=== PATIENT | female | born 1940 | race Caucasian/White ===

== ENCOUNTER 2016-11-27 17:31 | Emergency (ER) | payer MEDICARE, MEDICAID ==
[~2016-11-27] VITALS: Ht 157.5 cm; Wt 75.9 kg
[2016-11-27 17:51] VITALS: BP 108/67; PULSE 73; RESP 19; O2SAT 99
[2016-11-27 18:04] LABS: BASOPHILS % (AUTO) 0.3 % (0-3); EOSINOPHILS % (AUTO) 1.9 % (0-5); MONOCYTES % (AUTO) 8.8 % (4-12); Mean Corpuscular Hemoglobin 24.8 pg (27.0-35.0); Mean Corpuscular Volume 81.4 fL (81-100); NEUTROPHILS % (AUTO) 68.8 % (40-74); Platelet Count 286 bil/L (150-400)
--- NOTE | 2016-11-27 18:11 | ED.REPORT ---
HPI-General Illness Date of Service November 27, 2016 ED Provider: Jak Carpenter MD The patient is a 75 year old female with a medical history including MS, Parkinson's disease, hypertension, DM type 2, and atrial fibrillation who presents to the ED via EMS from [facility] with elevated blood glucose levels measured this week. EMS found the patient with a blood sugar of 499. The patient has an indwelling Perez and three days ago she was placed on Bactrim for a UTI. The patient denies fever, vomiting, chest pain, shortness of breath, or other symptoms. She normally takes Levemir 90 units in the morning and 50 units at night as well as Tradjenta 5mg daily. Patient is FULL CODE, FULL TREATMENT. Nursing Notes Stated Complaint: HIGH BLOOD SUGAR Chief Complaint: General Complaint Nursing Notes Reviewed: Yes Allergies: Coded Allergies: No Known Allergies (Unverified , 11/27/16) Scheduled Amoxicillin/Clav K 875-125 mg (Augmentin 875-125 mg) 1 Each Tablet 1 TABLET PO BID General Time Seen by MD: 18:10 Chief Complaint Other (Hyperglycemia) Hx Obtained From: Patient Arrived By: Ambulance Sudden in Onset?: No Onset Occurred: 1 week ago Symptom Duration: Since onset Severity: Current: No pain currently Severity: Maximum: No pain Pertinent Negative: Relieved by nothing Context Related History: Reports Diabetes mellitus Recent Healthcare: Recent doctor visit Past Medical History Past Medical History Multiple sclerosis Parkinson's disease Hyperlipidemia Hypertension DM type 2 Atrial fibrillation Cognitive communication deficit Chronic low back pain Severe pancreatitis with splenic vein thrombosis with prior J-tube and gastric pancreatic drain placement in [facility] about 4 years ago. The drains have been removed. Past Surgical History Left distal femur fracture s/p ORIF in 01/2015 Total left knee arthroplasty Cholecystectomy Hysterectomy Ankle surgery Cataract extraction Knee arthroscopy Suprapubic cystostomy with suprapubic catheter placement Family History Diabetes maternal side Heart disease paternal side Smoking History Unknown if Ever Smoker Social History Other Social History: [facility] in penitentiary Ambulatory Status Independent Review of Systems + Hyperglycemia (499 per EMS) Full Review of Systems Constitutional: Denies: Fever Respiratory: Denies: Non-productive cough, Shortness of breath Cardiovascular: Denies: Chest pain GI: Denies: Diarrhea, Vomiting Complete sys rev & neg: except as marked. Physical Exam Vital Signs Vital Signs Date Time Temp Pulse Resp B/P Pulse Ox O2 Delivery O2 Flow Rate FiO2 11/28/16 00:30 37.1 72 14 145/78 99 Room Air 11/27/16 17:51 36.9 73 19 108/67 99 Room Air Initial VS: Reviewed Head / Eyes: Atraumatic, Normocephalic ENT: Conjunctiva normal, No scleral icterus Skin: Warm, Dry, No cyanosis Neurologic: Alert, Oriented Psychiatric: Mood/affect normal, Behavior normal, Normal thought content General/Constitutional: Awake, Alert Respiratory / Chest: Breath sounds NL, Breath sounds = bilat, No respiratory distress Cardiovascular: Heart rate NL, Regular rhythm, Heart sounds NL, No gallop, No murmurs, No rubs Interpretation & Diagnostics Bedside Blood Glucose: 444 at 18:25 343 at 20:22 209 at 23:09 Lab Results Interpretation Result Diagram: 11/27/16 1743 11/27/16 1743 Test 11/27/16 17:43 11/27/16 18:12 White Blood Count 11.3th/mm3 (3.8-10.1) Red Blood Count 3.87mil/mm3 (3.90-5.20) Hemoglobin 9.6g/dL (12.0-15.6) Hematocrit 31.5% (35.0-46.0) Mean Corpuscular Volume 81.4fL (81-100) Mean Corpuscular Hemoglobin 24.8pg (27.0-35.0) Mean Corpuscular Hemoglobin Concent 30.5% (32.0-37.0) Red Cell Distribution Width 17.7% (12.3-15.4) Platelet Count 286bil/L (150-400) Neutrophils (%) (Auto) 68.8% (40-74) Lymphocytes (%) (Auto) 19.7% (14-46) Monocytes (%) (Auto) 8.8% (4-12) Eosinophils (%) (Auto) 1.9% (0-5) Basophils (%) (Auto) 0.3% (0-3) Sodium Level 130mEq/L (134-144) Potassium Level 5.4mEq/L (3.5-5.2) Chloride Level 92mEq/L (97-108) Carbon Dioxide Level 21mmol/L (18-29) Blood Urea Nitrogen 31mg/dL (8-27) Creatinine 1.19mg/dL (0.57-1.00) Estimat Glomerular Filtration Rate 64mL/min (>59) Glucose Level 507mg/dL (60-99) Calcium Level 9.2mg/dL (8.5-10.1) Magnesium Level 1.5mg/dL (1.6-2.6) Total Bilirubin 0.2mg/dL (0.0-1.2) Aspartate Amino Transf (AST/SGOT) 23U/L (0-50) Alanine Aminotransferase (ALT/SGPT) 6U/L (0-32) Alkaline Phosphatase 130U/L (25-165) Troponin T < 0.010ug/L (0.0-0.011) Total Protein 7.7g/dL (6.4-8.4) Albumin 2.6g/dL (3.4-5.0) Urine Color Dark yellow (YELLOW) Urine Appearance Hazy (CLEAR,HAZY) Urine pH 7.0 (5.0-8.0) Urine Specific [place] 1.010 (1.003-1.035) Urine Protein Tracemg/dL (NEG,TRACE) Urine Glucose (UA) >1000mg/dL (NEGATIVE) Urine Ketones Negativemg/dL (NEGATIVE) Urine Occult Blood Large (NEGATIVE) Urine Nitrite Negative (NEGATIVE) Urine Bilirubin Negative (NEGATIVE) Urine Urobilinogen Normalmg/dL (NORMAL) Urine Leukocyte Esterase Moderate (NEGATIVE) Urine RBC >50/hpf (0-2) Urine WBC >50/hpf (0-5) Urine Epithelial Cells Few/hpf (NONE-MOD) Urine Crystals None seen (NONE SEEN) Urine Bacteria Few/hpf (NONE-FEW) Urine Hyaline Casts None/lpf (NONE) Urine Granular Casts None seen (NONE SEEN) Urine Waxy Casts None seen (NONE SEEN) Urine Red Blood Cell Casts None seen (NONE SEEN) Urine White Blood Cell Casts None seen (NONE SEEN) Urine Mucus None seen (None Seen) Urine Trichomonas None seen (NONE SEEN) Urine Yeast None (NONE SEEN) Urinalysis Comment None Urine Culture Reflexed Indicated ECG Interpretation ECG Interpretation: Sinus rhythm 63 Old inferior infarct Possible anterior infarct Nothing acute Time: 19:18 Interpreted by: ED physician X-Ray Chest Interpretation Chest Xray Interpretation: IMPRESSION: Decreased lung volumes, without acute cardiopulmonary disease. Dictated by: Doroteo Daniel M.D. on 11/27/2016 at 19:54 View: Portable, 1 view Interpretation / Wet Read by: Interpret - Radiologist Re-Eval/Medical Decision Med Decision/Clinical Course 75-year-old type II diabetic with multiple other medical problems who for the last several days has been having [facility]. Is also thought to have urinary tract infection, previous treatment for this is unknown to me and to Dr. Alejandre her primary care doctor at the [facility] facility. Other than her urinary tract infection, no cause for decompensation and blood sugars was identified. Considered acute ischemia, other infectious processes surgical abdominal problems. She had a gap of 17 is not making ketones is hemodynamically stable and not febrile. I believe she is septic or in DKA. She was given IV fluids and 3 separate subcutaneous doses of regular insulin here in the emergency department. Her blood sugar has come down to a reasonable level. She was given Rocephin intravenously for her urinary tract infection. After discussion with Dr. Alejandre, she is discharged back to the [facility] facility with the addition of a regular insulin sliding scale and Augmentin for her presumed urinary tract infection with urine cultures pending. Source of Hx: Old records Time of Eval: 20:30 Patient Status: Condition improved Re-Evaluation/Progress Note: Discussed with patient lab and x-ray results, diagnosis, and plan for discharge after blood sugar is reduced. Follow-up and return to the ER instructions given. Patient agrees with plan for care and all questions were addressed. Consultation : Referral / Consult Name: Quoc Alejandre MD Consulted With: Primary care physician Call Returned at: 22:01 Tool And Die Designer: Agrees with eval, Agrees with plan Note: Recommends medium dose of regular insulin sliding scale Counseled Regarding: Diagnosis, Lab results, Need for follow-up, When/why to return to ED Discharge & Departure Primary Impression: Hyperglycemia due to type 2 diabetes mellitus Diabetes mellitus jail insulin use: unspecified jail insulin use status Qualified Code: E11.65 - Type 2 diabetes mellitus with hyperglycemia Additional Impression: Urinary tract infection Urinary tract infection type: acute cystitis Hematuria presence: without hematuria Qualified Code: N30.00 - Acute cystitis without hematuria Disposition: Home Discharge Condition All VS Reviewed: Yes Condition: Improved Additional Instructions: Emergency Department evaluation included interview exam labs ECG and chest x- ray. A urinary tract infection was noted. Glucose came from over 500 to 200 with IV fluids and insulin. We gave Rocephin 2 g intravenously. Case was discussed with Dr. Miguel. Continue previous medications. Add Augmentin 875 twice a day 5 days. Add insulin sliding scale as attached. Contact Dr. Miguel for additional follow-up instructions. Referrals: Quoc Alejandre MD Attestation Portions of this note were transcribed by Holly Perry. I, Dr. Carpenter, personally performed the history, physical exam, and medical decision-making; I reviewed and confirmed the accuracy of the information in the transcribed note. Signed by: Tonya Powers, 11/28/2016, 00:45 copies to: Quoc Alejandre MD, Donald L MD November 27, 2016 18:11 HOLLY PERRY November 27, 2016 18:15
[2016-11-27 18:22] LABS: Magnesium 1.5 mg/dL (1.6-2.6)
[2016-11-27 18:50] LABS: APPEARANCE,URINE HAZY (CLEAR,HAZY); COLOR,URINE DARK YELLOW (YELLOW); OCCULT BLOOD,URINE LARGE (NEGATIVE); UROBILINOGEN,URINE NORMAL (NORMAL)
[2016-11-27] MEDS ORDERED: Insulin Human REGular-Omnicell 100 Unit/mL SUBQ ONE ×3 (19:10→21:55)
--- NOTE | 2016-11-27 19:57 | DRSVH ---
PROCEDURE: X-RAY CHEST ONE VIEW, PORTABLE ([id number]) INDICATIONS: 75 year-old diabetic female with hyperglycemia. TECHNIQUE: One view of the chest was acquired. COMPARISON: None. FINDINGS: Surgical changes and devices: Cholecystectomy clips are present, as well as pigtail catheter device i n the medial left upper abdomen. Lungs and pleura: No pleural effusions or pneumothorax. Lungs are clear. Lung volumes are decrease d. Mediastinum: Mediastinal contours appear normal. Heart size is normal. Bones and chest wall: No suspicious bony lesions. Overlying soft tissues appear unremarkable. IMPRESSION: Decreased lung volumes, without acute cardiopulmonary disease. Dictated by: Doroteo Daniel M.D. on 11/27/2016 at 19:54 Approved by: Doroteo Daniel M.D. on 11/27/2016 at 19:55
[2016-11-27] MEDS ORDERED: cefTRIAXone Inj 2,000 MG in Dextrose 5% Minibag Plus 50 ML IV ONE (20:35)
[2016-11-27] MEDS ORDERED: AMOX-366 PO (23:12)
[2016-11-28 00:30] VITALS: BP 145/78; PULSE 72; RESP 14; O2SAT 99
== END 2016-11-28 00:20 | disposition home or self-care (01) ==
LOC: EDBD 17:31 → SED 17:31
DX: E11.65 Type 2 diabetes mellitus with hyperglycemia (principal); N30.00 Acute cystitis without hematuria; G35 Multiple sclerosis; G20 Parkinson's disease; I10 Essential (primary) hypertension; E78.5 Hyperlipidemia, unspecified
CPT/HCPCS: 36415; 71010; 80053; 81000; 82948; 83735; 84484; 85025; 87086; 93005; 96365; 96372; 99285; J0696; J1815

== ENCOUNTER 2016-12-16 15:55 | Inpatient (IN) | payer MEDICARE, MEDICAID ==
[~2016-12-16] VITALS: Ht 160 cm; Wt 80.5 kg
[2016-12-16] VITALS (7 sets, daily range): BP systolic 104–148; BP diastolic 36–80; PULSE 81–100; RESP 16–22; O2SAT 95–100
[~2016-12-16 15:55] MED LIST: AMOX-366 PO
--- NOTE | 2016-12-16 16:05 | ED.REPORT ---
HPI-Fever Date of Service Dec 16, 2016 ED Provider: Dr. Grande Pt is a 75 y/o female w/ a hx of UTI, MS, Parkinson's disease, HTN, hyperlipidemia, NIDDM, A-fib, presenting to the ED via EMS from [facility] due to fever onset today. [facility] called EMS due to fever of 101 F and shaking chills after calling her PCP who told to come in to the ED. She c/o associated difficulty urinating onset unknown. She denies any pain or discomfort , cough, SOB, nausea, vomiting, diarrhea, dysuria, rash, skin breakdown, focal numbness or weakness. She has a history of UTIs previously and current symptoms are similar. She does not know the last time she had a UTI. Medics noted fever of 102.8 F on route with other vital signs stable. She apparently had a UTI several weeks ago and was admitted to [facility] at which time a suprapubic catheter was placed and she was treated with Bactrim. The suprapubic catheter was later pulled because there was discharge of pus. She then had a Perez catheter placed and seemed to improve. She was started on Bactrim again on 11/26 due to supposed UTI. Nurse at [facility] indicates her mental status is somewhat worse today that usual. Hx limited due to mental status. Nursing Notes Stated Complaint: FEVER Nursing Notes Reviewed: Yes Allergies: Coded Allergies: No Known Allergies (Unverified , 11/27/16) Scheduled Acetaminophen (Acetaminophen) 325 Mg Tablet 650 MG PO TID Aspirin Chew (Aspirin Chew) 81 Mg Chew 81 MG PO QAM Biotin (Biotin) 5,000 Mcg Tab.rapdis 5,000 MCG PO BID Carbidopa/Levodopa 25-100 mg (Carbidopa/Levodopa 25-100 mg) 1 Each Tablet 2 TABLET PO TIDWM Chlorhexidine Gluconate (Hand Wash) 2 % Liquid 10 ML TP WEEKLY DURING SHOWER WEEKLY Cholecalciferol (Vitamin D3) (Vitamin D3) 1,000 Unit Tab.chew 2,000 UNIT PO QAM Cyanocobalamin (Vitamin B12) 500 Mcg Tablet 1,000 MCG PO QAM Gabapentin (Gabapentin) 400 Mg Capsule 400 MG PO QID Insulin Detemir (Levemir U100 Insulin Vial) 100 Unit/1 Ml Vial 100 UNIT SUBQ DAILYWM Insulin Detemir (Levemir U100 Insulin Vial) 100 Unit/1 Ml Vial 60 UNIT SUBQ DAILYWD Lactobacillus Acidophilus (Probiotic Acidophilus) 2 Billion Cell Tablet 1 EACH PO BIDWM Linagliptin (Tradjenta) 5 Mg Tablet 5 MG PO QAM Lisinopril (Lisinopril) 2.5 Mg Tablet 2.5 MG PO QAM Metoprolol Tartrate (Metoprolol Tartrate) 50 Mg Tablet 50 MG PO BID Multivit with Calcium,Iron,Min (Therapeutic M) 1 Each Tablet 1 EACH PO QAM Nystatin (Nystatin) 15 Gm Powder 1 APPLIC TP BID TO GROIN Omeprazole (Omeprazole) 20 Mg Capsule.dr 20 MG PO QAM Simvastatin (Simvastatin) 10 Mg Tablet 10 MG PO HS Sulfamethoxazole/Trimeth 800-160 mg (Bactrim DS) 1 Each Tablet 1 TABLET PO BID Scheduled PRN Bisacodyl (Dulcolax Rectal) 10 Mg Supp.rect 10 MG RC DAILY PRN PRN For Constipation PER BOWEL PROTOCOL STEP 2: IF NO RESULTS POST MOM ADMINISTRATION Hydrocodone-Acetaminophen 5-325 mg (Hydrocodone-Acetaminophen 5-325 mg) 1 Each Tablet 1 TABLET PO Q6H PRN PRN For Pain Loperamide (Loperamide) 2 Mg Tablet 2 MG PO Q4H PRN PRN For Diarrhea or Loose Stool Magnesium Hydroxide (Milk of Magnesia) 400 Mg/5 Ml Oral.susp 30 ML PO DAILY PRN PRN For Constipation PER BOWEL PROTOCOL STEP 1: IF NO BOWEL MOVEMENTS IN 3 DAYS Methyl Salicylate/Menth/Camph (Bengay Ultra Strength Crm) 57 Gm Cream..g. 1 APPLIC TP BID PRN PRN For Pain TO FEET FOR ARTHRITIC PAIN Na Phos,M-B/Na Phos,Di-Ba (Fleet Enema) 133 Ml Enema 133 ML RC DAILY PRN PRN For Constipation PER BOWEL PROTOCOL STEP 3: IF NO RESULTS POST BISACODYL ADMINISTRATION Tramadol (Tramadol) 50 Mg Tablet 50-100 MG PO Q6H PRN PRN For Pain 1 TABLET FOR MIL PAIN, 2 TABLETS FOR MODERATE PAIN Zinc Oxide (Zinc Oxide) 57 Gm Oint...g. 1 APPLIC TP Q8H PRN PRN RASH General Time Seen by MD: 16:05 Chief Complaint Fever currently Hx Obtained From: Patient, EMS Arrived By: Ambulance Onset Occurred: 1 - 4 hours ago Symptom Duration: Since onset Severity: Current: No pain currently Severity: Maximum: No pain Similar Sx Previous: Yes Past Medical History Past Medical History Multiple sclerosis Parkinson's disease Recurrent ground level falls Hyperlipidemia Hypertension Hx UTI DM type 2 Atrial fibrillation Cognitive communication deficit Chronic low back pain h/o Severe pancreatitis with splenic vein thrombosis with prior J-tube and gastric pancreatic drain placement in [facility] about 4 years ago. The drains have been removed. Past Surgical History Left distal femur fracture s/p ORIF in 01/2015 Total left knee arthroplasty Cholecystectomy Hysterectomy Ankle surgery Cataract extraction Knee arthroscopy Suprapubic cystostomy with suprapubic catheter placement Perez catheter placement Family History Diabetes maternal side Heart disease paternal side Smoking History Unknown if Ever Smoker Social History Other Social History: Lives in [facility] Ambulatory Status Independent Review of Systems Review of Systems Note: +vague difficulty urinating Constitutional: Reports: Chills, Fever Respiratory: Denies: Non-productive cough, Pleuritic pain, Shortness of breath Cardiovascular: Denies: Chest pain GI: Denies: Abdominal pain, Constipation, Diarrhea, Nausea, Vomiting Male: Reports Urination decreased, Denies Dysuria, Denies Flank pain Skin: Denies Itching, Denies Rash, Denies Swelling Neurologic: Reports: Confusion, Denies: Focal weakness, Numbness Complete sys rev & neg: except as marked. Physical Exam Initial Vital Signs Vital Signs (First) Date Time Temp Pulse Resp B/P Pulse Ox O2 Delivery O2 Flow Rate FiO2 12/16/16 16:07 39.2 88 20 127/80 96 Room Air Initial VS: Reviewed Head / Eyes: Atraumatic, Normocephalic, PERRL ENT: Mucous membranes moist, Conjunctiva normal, No scleral icterus Extremities: Vascular intact, Neuro intact, No swelling, No tenderness Psychiatric: Mood/affect normal, Behavior normal General/Constitutional: Awake, Alert, No acute distress, Cooperative, Not toxic appearing Febrile Globally weak Neck: Atraumatic, Supple, No meningismus, Full range of motion Respiratory / Chest: Breath sounds NL, Breath sounds = bilat, No respiratory distress, No rales, No rhonchi, No wheezing, No retractions, No stridor Cardiovascular: Heart rate NL, Regular rhythm, Heart sounds NL, No gallop, No murmurs, No rubs Skin: Atraumatic, Color NL, No rash, Warm, Dry, Intact Neurologic: Speech NL, No motor deficits, No sensory deficits Pleasantly confused but worse than baseline according to SNF nurse Able to give a history but cannot answer some questions Records indicate cognitive difficulties Abdomen: Atraumatic, Soft, Non-tender, No guarding, No rebound, No distention Large incisional scar about mid-abdomen Suprapubic stoma healed with no signs of infection Indwelling Perez catheter in place which has apparently been there for 4-5 weeks Interpretation & Diagnostics Lab Results Interpretation Result Diagram: 12/16/16 1649 12/16/16 1649 Test 12/16/16 16:49 White Blood Count 12.8th/mm3 (3.8-10.1) Red Blood Count 3.96mil/mm3 (3.90-5.20) Hemoglobin 10.0g/dL (12.0-15.6) Hematocrit 32.5% (35.0-46.0) Mean Corpuscular Volume 82.1fL (81-100) Mean Corpuscular Hemoglobin 25.3pg (27.0-35.0) Mean Corpuscular Hemoglobin Concent 30.8% (32.0-37.0) Red Cell Distribution Width 16.5% (12.3-15.4) Platelet Count 260bil/L (150-400) Neutrophils (%) (Auto) 79.6% (40-74) Lymphocytes (%) (Auto) 8.3% (14-46) Monocytes (%) (Auto) 10.2% (4-12) Eosinophils (%) (Auto) 1.2% (0-5) Basophils (%) (Auto) 0.4% (0-3) Urine Color Yellow (YELLOW) Urine Appearance Cloudy (CLEAR,HAZY) Urine pH 6.0 (5.0-8.0) Urine Specific [place] 1.015 (1.003-1.035) Urine Protein 100mg/dL (NEG,TRACE) Urine Glucose (UA) 250mg/dL (NEGATIVE) Urine Ketones Negativemg/dL (NEGATIVE) Urine Occult Blood Large (NEGATIVE) Urine Nitrite Negative (NEGATIVE) Urine Bilirubin Negative (NEGATIVE) Urine Urobilinogen Normalmg/dL (NORMAL) Urine Leukocyte Esterase Large (NEGATIVE) Urine RBC 11-50/hpf (0-2) Urine WBC Packed/hpf (0-5) Urine Epithelial Cells Occasional/hpf (NONE-MOD) Urine Crystals None seen (NONE SEEN) Urine Bacteria Few/hpf (NONE-FEW) Urine Hyaline Casts None/lpf (NONE) Urine Granular Casts None seen (NONE SEEN) Urine Waxy Casts None seen (NONE SEEN) Urine Red Blood Cell Casts None seen (NONE SEEN) Urine White Blood Cell Casts None seen (NONE SEEN) Urine Mucus None seen (None Seen) Urine Trichomonas None seen (NONE SEEN) Urine Yeast Few (NONE SEEN) Urinalysis Comment None Urine Culture Reflexed Indicated Sodium Level 127mEq/L (134-144) Potassium Level 5.7mEq/L (3.5-5.2) Chloride Level 96mEq/L (97-108) Carbon Dioxide Level 18mmol/L (18-29) Blood Urea Nitrogen 32mg/dL (8-27) Creatinine 1.08mg/dL (0.57-1.00) Estimat Glomerular Filtration Rate 71mL/min (>59) Glucose Level 343mg/dL (60-99) Lactic Acid Level 1.8mmol/L (0.4-2.0) Calcium Level 9.6mg/dL (8.5-10.1) Total Bilirubin 0.3mg/dL (0.0-1.2) Aspartate Amino Transf (AST/SGOT) 28U/L (0-50) Alanine Aminotransferase (ALT/SGPT) < 5U/L (0-32) Alkaline Phosphatase 129U/L (25-165) Troponin T < 0.010ug/L (0.0-0.011) Pro-B-Type Natriuretic Peptide 522.1pg/mL (0-738) Total Protein 8.7g/dL (6.4-8.4) Albumin 3.2g/dL (3.4-5.0) Lab Results Interpretation: CBC positive leukocytosis CMP positive hyperglycemia, mild hyperK (no EKG changes) Lactic acid normal UA markedly positive suggested possible UTI, however is a sample from a Perez so difficult to interpret-cultures pending 2 pending ECG Interpretation ECG Interpretation: Sinus rhythm rate 86 LAD No change from prior 11/27/16 Time: 16:34 Interpreted by: ED physician Normal ECG Interpretation: No acute ischemic changes X-Ray Chest Interpretation Chest Xray Interpretation: IMPRESSION: No acute cardiopulmonary findings. Dictated by: Malena Sanders M.D. on 12/16/2016 at 17:13 Approved by: Malena Sanders M.D. on 12/16/2016 at 17:13 View: Portable, 1 view Interpretation / Wet Read by: Interpret - Radiologist Re-Eval/Medical Decision Med Decision/Clinical Course This is a 75-year-old female sent from [facility] [place] with new onset fever and chills. Fused and so I called the nursing facility to get their history or they are concerned about a urinary source, the patient had a suprapubic catheter that was filled with purulence couple months ago was pulled , the stone was now healed and she has an indwelling Perez. She has been on Bactrim for possible UTI initiated at [facility]. I was able to obtain records from the ED visit, but not successful at obtaining a urine culture. The patient apparently is not as confused as she is now, demonstrates some delirium. She cannot give any useful history. She appears fatigued and globally weak, but not overtly toxic. Her abdomen is soft and nontender. She is febrile, but not hypotensive. Blood work is notable for leukocytosis, hyperglycemia, and the urine is packed with white cells. The patient's being started on Antibiotics after cultures been drawn. She has been able to take by mouth antipyretics and IV fluids. She has trace hyperK which may be from the Bactrim, but has no EKG changes. Plan is D/C bactrim, IV fluids and recheck. Given the delirium and likely sepsis the patient is being admitted for continued management. Source of Hx: Old records Re-Evaluation/Progress : Time of Eval: 17:46 Re-Evaluation/Progress Note: Pt rechecked. Informed pt of need for admission. Pt understands and agrees with need for admission. All questions addressed. Consultation : Referral / Consult Name: Karl Rankin MD Call Returned at: 18:19 Flexographic Press Plate Setter: Accepts admit Counseled Regarding: Diagnosis, Lab results, Need for admission Discharge & Departure Impression: Primary Impression: UTI (urinary tract infection) Urinary tract infection type: site unspecified Hematuria presence: without hematuria Qualified Code: N39.0 - Urinary tract infection, site not specified Additional Impressions: Sepsis Sepsis type: sepsis due to unspecified organism Qualified Code: A41.9 - Sepsis, unspecified organism Delirium Hyperglycemia Hyperkalemia Disposition: ADMITTED TO HOSPITAL Discharge Condition All VS Reviewed: Yes Condition: Stable Referrals: Lucho Cali MD (PCP) Tonya Attestation Portions of this note were transcribed by Beto Sanchez. I, Dr. Grande personally performed the history, physical exam and medical decision-making; I reviewed and confirmed the accuracy of the information in the transcribed note. Signed by Tonya Asencio, 12/16/16 - [id number] copies to: Lucho Cali MD, Matthew F MD Dec 16, 2016 16:05 BETO SANCHEZ Dec 16, 2016 16:12
[2016-12-16] MEDS ORDERED: 0.9% Sodium Chloride 1,000 ML IV ONE ×2 (16:10→18:40)
[2016-12-16] MEDS ORDERED: CARB1TAB14 PO (16:48)
[2016-12-16] MEDS ORDERED: METH57CR TP (16:48)
[2016-12-16] MEDS ORDERED: BIOT5000 PO (16:48)
[2016-12-16] MEDS ORDERED: INSU100V4 SUBQ ×2 (16:48)
[2016-12-16] MEDS ORDERED: GABA-504 PO (16:48)
[2016-12-16] MEDS ORDERED: ACET325T51 PO (16:48)
[2016-12-16] MEDS ORDERED: HYDR-4003 PO (16:48)
[2016-12-16] MEDS ORDERED: ASPI81TA3 PO (16:48)
[2016-12-16] MEDS ORDERED: LINA5TAB PO ×2 (16:54→22:45)
[2016-12-16] MEDS ORDERED: TRAM50TA2 PO (16:54)
[2016-12-16] MEDS ORDERED: LOPE2TAB32 PO (16:54)
[2016-12-16] MEDS ORDERED: MULT-140 PO (16:54)
[2016-12-16] MEDS ORDERED: MAGN400O4 PO (16:54)
[2016-12-16] MEDS ORDERED: LACT1TAB25 PO (16:54)
[2016-12-16] MEDS ORDERED: BISA10SU61 RC (16:54)
[2016-12-16] MEDS ORDERED: OMEP20CA11 PO (16:54)
[2016-12-16] MEDS ORDERED: CYAN500 PO (16:54)
[2016-12-16] MEDS ORDERED: SERT20OR6 PO (16:54)
[2016-12-16] MEDS ORDERED: CHOL10008 PO (16:54)
[2016-12-16] MEDS ORDERED: ZINC57OI TP (16:54)
[2016-12-16] MEDS ORDERED: NYST15PO5 TP (16:54)
[2016-12-16] MEDS ORDERED: LISI2.5T PO (16:54)
[2016-12-16] MEDS ORDERED: SIMV10TA4 PO (16:54)
[2016-12-16] MEDS ORDERED: NA P133E23 RC (16:54)
[2016-12-16] MEDS ORDERED: METO25TA6 PO (16:54)
[2016-12-16] MEDS ORDERED: METO50TA3 PO (16:57)
[2016-12-16] MEDS ORDERED: CHLO60LI TP (16:57)
[2016-12-16 16:58] LABS: BASOPHILS % (AUTO) 0.4 % (0-3); EOSINOPHILS % (AUTO) 1.2 % (0-5); MONOCYTES % (AUTO) 10.2 % (4-12); Mean Corpuscular Hemoglobin 25.3 pg (27.0-35.0); Mean Corpuscular Volume 82.1 fL (81-100); NEUTROPHILS % (AUTO) 79.6 % (40-74); Platelet Count 260 bil/L (150-400)
--- NOTE | 2016-12-16 17:15 | DRSVH ---
PROCEDURE: X-RAY CHEST ONE VIEW, PORTABLE ([id number]) INDICATIONS: fever TECHNIQUE: One view of the chest was acquired. COMPARISON: [facility], CR, XR CHEST 1VW (PORTABLE), 11/27/2016, 19:22. FINDINGS: Surgical changes and devices: None. Lungs and pleura: No pleural effusions or pneumothorax. Lungs are clear. Mediastinum: Mediastinal contours appear normal. Heart size is normal. Bones and chest wall: No suspicious bony lesions. Overlying soft tissues appear unremarkable. IMPRESSION: No acute cardiopulmonary findings. Dictated by: Malena Sanders M.D. on 12/16/2016 at 17:13 Approved by: Malena Sanders M.D. on 12/16/2016 at 17:13
[2016-12-16] MEDS ORDERED: SULF1TAB7 PO (17:19)
[2016-12-16 17:27] LABS: TROPONIN T < 0.010 ug/L (0.0-0.011)
[2016-12-16 17:31] LABS: APPEARANCE,URINE CLOUDY (CLEAR,HAZY); COLOR,URINE YELLOW (YELLOW)
[2016-12-16 17:32] LABS: OCCULT BLOOD,URINE LARGE (NEGATIVE); UROBILINOGEN,URINE NORMAL (NORMAL); YEAST,URINE FEW (NONE SEEN)
[2016-12-16] MEDS ORDERED: 0.9% Sodium Chloride 1,000 ML IV SCH (17:52)
[2016-12-16] MEDS ORDERED: Alum-Mag Hydrox-Simeth 30 mL Suspension PO PRN ×2 (17:55→18:30)
[2016-12-16] MEDS ORDERED: Ondansetron 2 mg/mL 2 mL Inj IVPUSH PRN ×2 (17:55→18:30)
[2016-12-16] MEDS ORDERED: cefTRIAXone Inj 2,000 MG in Dextrose 5% Minibag Plus 50 ML IV ONE (18:25)
[2016-12-16] MEDS ORDERED: Polyethylene Glycol (PEG) 17 Gm Powder PO PRN (18:30)
[2016-12-16] MEDS ORDERED: Dextrose 10% 250 ML IV PRN (18:55)
[2016-12-16] MEDS: Insulin Human REGular 300 Unit/3 mL Inj SUBQ SCH (22:03)
--- NOTE | 2016-12-16 22:23 | PCM.HPMED ---
Subjective Date of Service Dec 16, 2016 Primary Provider: Admitting Physician: Karl Rnakin MD Primary Care Physician: Lucho Cali MD Attending Physician: Karl Rankin MD Chief Complaint: Fever and shaking chills. Patient states "I was shaking like a leaf". History of Present Illness: Patient is a very pleasant 75-year-old white female with history of multiple sclerosis, Parkinson's disease, hypertension, hyperlipidemia, non-insulin- dependent diabetes most, atrial fibrillation and history of severe urinary tract infections presents to [facility] emergency department via EMS services from [facility] [place] today due to onset of fever and shaking chills today. [facility] called EMS services as they found the patient's temperature to be 101 and she was having shaking chills. [facility] called the patient's primary care provider Lucho Regan who instructed the staff at [facility] that the patient needed to go to the emergency room. The medics noticed that the patient had 102.8F temperature on route to the hospital while the other vital signs were stable. Review of Systems: General: The patient states she was "shaking like a leaf". Prior to admission to the emergency room. HEENT: Patient has no headache, patient has no diplopia, patient has no changes in vision. Vision had bilateral cataract surgery with lens placement and sees quite well without glasses. She has some thinning of her hair. She denies any thyroid or endocrine problems. Patient has no problems with their ears, nose or throat. Patient has no known dental problems. Patient has no pharyngitis or history of thrush. Neck: Patient has no stiffness in the neck. Patient has no lymphadenopathy. Patient has no other problems with their neck. Pulmonary: Patient has no shortness of breath, no cough, no expectoration of sputum. Patient has no pleurisy. Patient has no chest pain. Patient has no history of asthma or COPD. Cardiovascular: Patient has no chest pain. Patient has no history of heart murmur. Patient has no palpitations. Patient has no history of myocardial infarction. Patient has no history of coronary artery disease. Gastrointestinal: Patient has no history of hepatitis A, B or C. Patient has no history of peptic ulcer disease. Patient has no history of gastroesophageal reflux disease. Patient has no history of nausea, vomiting, or diarrhea. Patient has no history of hematemesis, hematochezia, or melena. Patient has no history of colitis. Renal: Patient has no history of kidney disease. No history of kidney stones. Genitourinary: Patient has an indwelling Perez catheter. She has had some urinary tract infection the past due to her multiple sclerosis and Parkinson's disease she had placement of a suprapubic catheter. Pressure 3 months ago this catheter became grossly infected with purulent drainage and had to be removed. Patient has had a Perez catheter since that time. Patient was recently treated with Bactrim for a urinary tract infection. Musculoskeletal: Patient has no history of muscular skeletal problems. Neurologic: Patient has no history of stroke, no history of seizure, no history of TIA. Psychiatric: Patient has no history of psychiatric problems. The remainder of the entire review of systems was reviewed with patient and is as mentioned above otherwise negative. Allergies Coded Allergies: No Known Allergies (Unverified , 12/16/16) Home Medications Scheduled Acetaminophen (Acetaminophen) 325 Mg Tablet 650 MG PO TID Aspirin Chew (Aspirin Chew) 81 Mg Chew 81 MG PO QAM Biotin (Biotin) 5,000 Mcg Tab.rapdis 5,000 MCG PO BID Carbidopa/Levodopa 25-100 mg (Carbidopa/Levodopa 25-100 mg) 1 Each Tablet 2 TABLET PO TIDWM Chlorhexidine Gluconate (Hand Wash) 2 % Liquid 10 ML TP WEEKLY DURING SHOWER WEEKLY Cholecalciferol (Vitamin D3) (Vitamin D3) 1,000 Unit Tab.chew 2,000 UNIT PO QAM Cyanocobalamin (Vitamin B12) 500 Mcg Tablet 1,000 MCG PO QAM Gabapentin (Gabapentin) 400 Mg Capsule 400 MG PO QID Insulin Detemir (Levemir U100 Insulin Vial) 100 Unit/1 Ml Vial 100 UNIT SUBQ DAILYWM Insulin Detemir (Levemir U100 Insulin Vial) 100 Unit/1 Ml Vial 60 UNIT SUBQ DAILYWD Lactobacillus Acidophilus (Probiotic Acidophilus) 2 Billion Cell Tablet 1 EACH PO BIDWM Linagliptin (Tradjenta) 5 Mg Tablet 5 MG PO QAM Lisinopril (Lisinopril) 2.5 Mg Tablet 2.5 MG PO QAM Metoprolol Tartrate (Metoprolol Tartrate) 50 Mg Tablet 50 MG PO BID Multivit with Calcium,Iron,Min (Therapeutic M) 1 Each Tablet 1 EACH PO QAM Nystatin (Nystatin) 15 Gm Powder 1 APPLIC TP BID TO GROIN Omeprazole (Omeprazole) 20 Mg Capsule.dr 20 MG PO QAM Simvastatin (Simvastatin) 10 Mg Tablet 10 MG PO HS Sulfamethoxazole/Trimeth 800-160 mg (Bactrim DS) 1 Each Tablet 1 TABLET PO BID Scheduled PRN Bisacodyl (Dulcolax Rectal) 10 Mg Supp.rect 10 MG RC DAILY PRN PRN For Constipation PER BOWEL PROTOCOL STEP 2: IF NO RESULTS POST MOM ADMINISTRATION Hydrocodone-Acetaminophen 5-325 mg (Hydrocodone-Acetaminophen 5-325 mg) 1 Each Tablet 1 TABLET PO Q6H PRN PRN For Pain Loperamide (Loperamide) 2 Mg Tablet 2 MG PO Q4H PRN PRN For Diarrhea or Loose Stool Magnesium Hydroxide (Milk of Magnesia) 400 Mg/5 Ml Oral.susp 30 ML PO DAILY PRN PRN For Constipation PER BOWEL PROTOCOL STEP 1: IF NO BOWEL MOVEMENTS IN 3 DAYS Methyl Salicylate/Menth/Camph (Bengay Ultra Strength Crm) 57 Gm Cream..g. 1 APPLIC TP BID PRN PRN For Pain TO FEET FOR ARTHRITIC PAIN Na Phos,M-B/Na Phos,Di-Ba (Fleet Enema) 133 Ml Enema 133 ML RC DAILY PRN PRN For Constipation PER BOWEL PROTOCOL STEP 3: IF NO RESULTS POST BISACODYL ADMINISTRATION Tramadol (Tramadol) 50 Mg Tablet 50-100 MG PO Q6H PRN PRN For Pain 1 TABLET FOR MIL PAIN, 2 TABLETS FOR MODERATE PAIN Zinc Oxide (Zinc Oxide) 57 Gm Oint...g. 1 APPLIC TP Q8H PRN PRN RASH PMH Multiple sclerosis- is able to ambulate with a walker Parkinson's disease Recurrent ground level falls- states she has not had a fall for "quite a while" . Hyperlipidemia Hypertension Hx UTI DM type 2 Atrial fibrillation Cognitive communication deficit Chronic low back pain h/o Severe pancreatitis with splenic vein thrombosis with prior J-tube and gastric pancreatic drain placement in [facility] about 4 years ago. The drains have been removed. Surgical History Left distal femur fracture s/p ORIF in 01/2015 Total left knee arthroplasty Cholecystectomy Hysterectomy Ankle surgery Bilateral Cataract extraction Knee arthroscopy Suprapubic cystostomy with suprapubic catheter placement Perez catheter placement Family History Patient's father at 65 of myocardial infarction Patient's mother at the age of 64 from complications of diabetes Patient had one brother who of pancreatitis Patient has 1 sister who is very healthy. Social History Hx Alcohol Use: Yes (The patient drank during her teenage years only.) Hx Substance Use: No Smoking Status: Former Smoker (The patient smoked from the age of [age] one pack per day and then she quit.) Living Arrangement: Longterm Facility Additional Information The patient was born in [place], [place]. She went to high school in [place]. She graduated high school and did not go to college. She never and states single her entire life. She is 0 para 0. She moved to [place], [place] with her sister 14 years ago for better weather. However, the patient due to her multiple sclerosis and Parkinson's disease was unable to continue living in at home her sister is still living there. The patient was moved to [facility] where she has been residing for the last year. Exam Vital Signs Vital Sign - Last Date Time Temp Pulse Resp B/P Pulse Ox O2 Delivery O2 Flow Rate FiO2 12/16/16 20:41 37.3 86 18 146/78 99 Nasal Cannula 2.00 Exam General: Patient apparently was delirious in the emergency room was much more awake and alert and responsive and totally appropriate during my interview. She is eating macaroni and cheese voraciously. HEENT: Head is atraumatic and normocephalic. He has thinning of her hair. Eyes : Pupils are equally round and reactive to light and accommodation. Extraocular muscles are intact. Sclera are white, anicteric. Subconjunctival mucosa is pink. Ears and nose are unremarkable. Oropharynx: There is no mucosal lesions, there is no thrush, there is no pharyngitis. Neck: Is supple, there are no nodes, or masses or tenderness. Chest: Is clear to auscultation and percussion. There are no rales, rhonchi, wheezes or rubs. Breath sounds are shallow. Heart: Rate, rhythm is regular. There is no murmur, rub or gallop. Abdomen: Good bowel sounds are present. Abdomen is soft, nontender, no organomegaly or masses were appreciated. Extremities: Are symmetrical and well perfused. There is no edema, there is no cellulitis, no rash. Neurologic: Cranial nerves II through XII are intact. There is weakness in the lower extremities. Patient is left-hand dominant and is leaning towards the right. There is no obvious focal neurological deficit appears to be grossly symmetrical. Psychiatric: Patients mood is calm and shows no sign of agitation. Genital: Deferred Rectal: Deferred Lab and Diagnostics Result Diagram: 12/16/16 1649 12/16/16 1649 Microbiology N urine cultures are pending X-Rays, CTs and MRIs PROCEDURE: X-RAY CHEST ONE VIEW, PORTABLE ([id number]) INDICATIONS: fever TECHNIQUE: One view of the chest was acquired. COMPARISON: [facility], CR, XR CHEST 1VW (PORTABLE), 11/27/2016, 19: 22. FINDINGS: Surgical changes and devices: None. Lungs and pleura: No pleural effusions or pneumothorax. Lungs are clear. Mediastinum: Mediastinal contours appear normal. Heart size is normal. Bones and chest wall: No suspicious bony lesions. Overlying soft tissues appear unremarkable. IMPRESSION: No acute cardiopulmonary findings. Dictated by: Malena Sanders M.D. on 12/16/2016 at 17:13 Approved by: Malena Sanders M.D. on 12/16/2016 at 17:13 Assessment & Plan Patient is a very pleasant 75-year-old white female with history of multiple sclerosis, Parkinson's disease, hypertension, hyperlipidemia, non-insulin- dependent diabetes most, atrial fibrillation and history of severe urinary tract infections presents to [facility] emergency department via EMS services from [facility] today due to onset of fever and shaking chills today. [facility] called EMS services as they found the patient's temperature to be 101 and she was having shaking chills. [facility] called the patient's primary care provider Lucho Regan who instructed the staff at [facility] that the patient needed to go to the emergency room. The medics noticed that the patient had 102.8F temperature on route to the hospital while the other vital signs were stable. # Urinary tract infection with sepsis, present at time of admission. Active and ongoing.. - Patient has lactic acidosis - Patient will get another liter of normal saline bolus for a total of 3 L per sepsis protocol. - Check serial serum lactic acid levels until normalized. - Check final urine culture results - Continue Rocephin 2 g IV every 24 hours and adjust antibiotics according to culture results. - Check renal ultrasound. # Multiple sclerosis and Parkinson's disease - Patient has frequent urinary tract infections and had a suprapubic catheter placed in the past however this also got infected. - Change Perez catheter prior to discharge - We will consult physical therapy, occupational therapy, and speech therapy. - Continue home medications. # Type II diabetes mellitus - Sliding-scale insulin coverage after Accu-Cheks before meals and at bedtime - Check hemoglobin A1c - Diabetic diet. # History of hypertension - Continue home medications # History of hyperlipidemia - Continue home medications Disposition: Patient will be admitted for more than 2 midnights for evaluation and treatment of the above problems. Therefore, patient was admitted as an inpatient. Pain Evaluation: Adequate Pain Control GI Prophylaxis: Not indicated VTE Prophylaxis: Sub-Q Enoxaparin Resuscitation Status: CPR: Attempt Resuscitation Karl Rankin MD Dec 16, 2016 22:23
[2016-12-16] MEDS ORDERED: HYDROcodone-APAP 5-325 mg Tablet PO ONE (22:40)
[2016-12-16] MEDS ORDERED: Magnesium Hydroxide 355 mL Oral Suspension PO PRN (22:55)
[2016-12-16] MEDS ORDERED: Sodium Biphos-Phos 133 mL Enema RECTAL PRN (22:55)
[2016-12-16] MEDS ORDERED: Insulin GLARgine 100 Unit/mL Syringe SUBQ SCH (23:32)
[2016-12-16] MEDS: Nystatin 100,000 Unit/Gm 15 Gm Powder TOPICAL SCH (23:37)
[2016-12-16] MEDS ORDERED: Menthol Gel 57 Gm Tube TOPICAL PRN (23:40)
[2016-12-17] VITALS (8 sets, daily range): BP systolic 111–131; BP diastolic 57–75; PULSE 62–79; RESP 18–20; O2SAT 95–100
[2016-12-17] MEDS: 0.9% Sodium Chloride 1,000 ML IV SCH ×2 (01:39→21:00)
[2016-12-17] MEDS: Pantoprazole 20 mg ER24 Tablet PO SCH (05:56)
[2016-12-17 07:03] LABS: BASOPHILS % (AUTO) 0.5 % (0-3); EOSINOPHILS % (AUTO) 2.2 % (0-5); MONOCYTES % (AUTO) 15.9 % (4-12); Mean Corpuscular Hemoglobin 24.6 pg (27.0-35.0); Mean Corpuscular Volume 83.4 fL (81-100); NEUTROPHILS % (AUTO) 49.8 % (40-74); Platelet Count 195 bil/L (150-400)
[2016-12-17 08:41] LABS: ERYTHROCYTE SEDIMENTATION RATE 86 mm/hr (0-40)
[2016-12-17 09:31] LABS: Magnesium 1.3 mg/dL (1.6-2.6); Phosphorus 4.3 mg/dL (2.5-4.9)
[2016-12-17 09:32] LABS: Unsaturated Iron Binding 209.6 ug/dL
[2016-12-17] MEDS: HYDROcodone-APAP 5-325 mg Tablet PO PRN ×2 (10:23→20:36)
[2016-12-17] MEDS: Insulin Human REGular 300 Unit/3 mL Inj SUBQ SCH ×4 (10:25→22:28)
[2016-12-17] MEDS: Insulin GLARgine 100 Unit/mL Syringe SUBQ SCH (10:26)
[2016-12-17] MEDS: Nystatin 100,000 Unit/Gm 15 Gm Powder TOPICAL SCH ×2 (10:28→20:40)
[2016-12-17] MEDS: cefTRIAXone Inj 2,000 MG in Dextrose 5% Minibag Plus 50 ML IV SCH (19:37)
--- NOTE | 2016-12-17 23:40 | PCM.PNMED ---
Subjective Date of Service Dec 17, 2016 Subjective Patient has no new complaints. She is beginning to feel better. She was able to walk around her bed with the assistance of a walker and 2 physical therapist Exam Vital Signs Vital Sign - Last Date Time Temp Pulse Resp B/P Pulse Ox O2 Delivery O2 Flow Rate FiO2 12/17/16 20:47 37.1 62 18 131/75 96 12/17/16 18:28 Nasal Cannula 2.00 Intake and Output 12/16/16 12/16/16 12/17/16 Cumulative From/Thru 15:00 23:00 07:00 12/16/16 16:07 - 12/17/16 05:38 Intake Total 1000 ml 1469 ml 2469 ml Output Total 1800 ml 1800 ml Balance 1000 ml -331 ml 669 ml Intake Oral 220 ml 220 ml IV Total 1000 ml 1249 ml 2249 ml Output Urine Total 1800 ml 1800 ml # Bowel Movements 1 1 Exam General: Patient apparently was delirious in the emergency room was much more awake and alert and responsive and totally appropriate during my interview. She is eating macaroni and cheese voraciously. HEENT: Head is atraumatic and normocephalic. He has thinning of her hair. Eyes : Pupils are equally round and reactive to light and accommodation. Extraocular muscles are intact. Sclera are white, anicteric. Subconjunctival mucosa is pink. Ears and nose are unremarkable. Oropharynx: There is no mucosal lesions, there is no thrush, there is no pharyngitis. Neck: Is supple, there are no nodes, or masses or tenderness. Chest: Is clear to auscultation and percussion. There are no rales, rhonchi, wheezes or rubs. Breath sounds are shallow. Heart: Rate, rhythm is regular. There is no murmur, rub or gallop. Abdomen: Good bowel sounds are present. Abdomen is soft, nontender, no organomegaly or masses were appreciated. Extremities: Are symmetrical and well perfused. There is no edema, there is no cellulitis, no rash. Neurologic: Cranial nerves II through XII are intact. There is weakness in the lower extremities. Patient is left-hand dominant and is leaning towards the right. There is no obvious focal neurological deficit appears to be grossly symmetrical. Psychiatric: Patients mood is calm and shows no sign of agitation. Genital: Deferred Perez catheter is present. Rectal: Defered Lab and Diagnostics Result Diagram: 12/17/16 0612/17/16 06 Microbiology N urine cultures are pending X-Rays, CTs and MRIs PROCEDURE: X-RAY CHEST ONE VIEW, PORTABLE ([id number]) INDICATIONS: fever TECHNIQUE: One view of the chest was acquired. COMPARISON: [facility], CR, XR CHEST 1VW (PORTABLE), 11/27/2016, 19: 22. FINDINGS: Surgical changes and devices: None. Lungs and pleura: No pleural effusions or pneumothorax. Lungs are clear. Mediastinum: Mediastinal contours appear normal. Heart size is normal. Bones and chest wall: No suspicious bony lesions. Overlying soft tissues appear unremarkable. IMPRESSION: No acute cardiopulmonary findings. Dictated by: Malena Sanders M.D. on 12/16/2016 at 17:13 Approved by: Malena Sanders M.D. on 12/16/2016 at 17:13 Assessment & Plan Patient is a very pleasant 75-year-old white female with history of multiple sclerosis, Parkinson's disease, hypertension, hyperlipidemia, non-insulin- dependent diabetes most, atrial fibrillation and history of severe urinary tract infections presents to [facility] emergency department via EMS services from [facility] [place] today due to onset of fever and shaking chills today. [facility] called EMS services as they found the patient's temperature to be 101 and she was having shaking chills. [facility] called the patient's primary care provider Lucho Regan who instructed the staff at [facility] that the patient needed to go to the emergency room. The medics noticed that the patient had 102.8F temperature on route to the hospital while the other vital signs were stable. # Urinary tract infection with sepsis, present at time of admission. Active and ongoing.. - Patient has lactic acidosis, now resolving - Patient received a total of 3 L per sepsis protocol. - Check serial serum lactic acid levels until normalized. - Check final urine culture results - Continue Rocephin 2 g IV every 24 hours and adjust antibiotics according to culture results. - Check renal ultrasound which is pending. # Multiple sclerosis and Parkinson's disease - Patient has frequent urinary tract infections and had a suprapubic catheter placed in the past however this also got infected. - Change Perez catheter prior to discharge - We will consult physical therapy, occupational therapy, and speech therapy. - Continue home medications. # Type II diabetes mellitus - Sliding-scale insulin coverage after Accu-Cheks before meals and at bedtime - Check hemoglobin A1c - Diabetic diet. # History of hypertension - Continue home medications # History of hyperlipidemia - Continue home medications Disposition: Patient will be here another 24-48 hours for the evaluation and treatment of the above problems. We are awaiting urine culture results in order to adjust antibiotics accordingly. Will also check renal ultrasound to look for obstruction or hydronephrosis and will need to change Perez catheter prior to discharge. Pain Evaluation: Adequate Pain Control GI Prophylaxis: Not indicated VTE Prophylaxis: Sub-Q Enoxaparin VTE Mechanical Devices: Intermittant Pneumatic CD Resuscitation Status: CPR: Attempt Resuscitation Karl Rankin MD Dec 17, 2016 23:40
[2016-12-18 00:48] VITALS: BP 109/66; PULSE 63; RESP 22; O2SAT 96
[2016-12-18 04:37] VITALS: BP 177/95; PULSE 73; RESP 18; O2SAT 96
[2016-12-18] MEDS: Pantoprazole 20 mg ER24 Tablet PO SCH (06:33)
[2016-12-18] MEDS: HYDROcodone-APAP 5-325 mg Tablet PO PRN ×2 (06:33→17:32)
[2016-12-18 06:37] LABS: BASOPHILS % (AUTO) 0.5 % (0-3); EOSINOPHILS % (AUTO) 4.2 % (0-5); MONOCYTES % (AUTO) 13.9 % (4-12); Mean Corpuscular Hemoglobin 24.8 pg (27.0-35.0); Mean Corpuscular Volume 83.2 fL (81-100); NEUTROPHILS % (AUTO) 51.1 % (40-74); Platelet Count 204 bil/L (150-400)
[2016-12-18 06:45] VITALS: BP 117/70; PULSE 66; RESP 24; O2SAT 95
[2016-12-18 06:56] LABS: Magnesium 1.3 mg/dL (1.6-2.6)
[2016-12-18] MEDS: Insulin GLARgine 100 Unit/mL Syringe SUBQ SCH (08:30)
[2016-12-18] MEDS: Insulin Human REGular 300 Unit/3 mL Inj SUBQ SCH ×4 (08:31→21:31)
[2016-12-18] MEDS: Nystatin 100,000 Unit/Gm 15 Gm Powder TOPICAL SCH ×2 (08:31→20:22)
[2016-12-18] MEDS ORDERED: Magnesium Sulf 2 Gm/50mL Water 2 GM in IV Premix 1 EACH IV ONE (08:40)
[2016-12-18] MEDS ORDERED: Magnesium Sulf 4 Gm/100 mL H2O 4 GM in IV Premix 1 EACH IV ONE (08:40)
--- NOTE | 2016-12-18 10:37 | DRSVH ---
PROCEDURE: US RENAL SONOGRAM INDICATIONS: Possible Obstruction/Hydronephrosis TECHNIQUE: Real-time scanning was performed of the kidneys and bladder, with image documentation. COMPARISON: None. FINDINGS: Kidneys: Kidneys are normal in size. Right kidney measures 11.3 cm long; left kidney measures 12.0 cm long. Right renal cortical thickness is 1.3 cm; left renal cortical thickness is 1.3 cm. Renal c ortical echotexture is normal. Moderate left hydronephrosis is present. Right renal cysts noted lar gest measuring roughly 32 mm. Bladder: Urinary bladder decompressed by Perez catheter and suboptimally visualized. Miscellaneous: No free pelvic fluid. IMPRESSION: Moderate left hydronephrosis. If clinically indicated, CT IVP may be helpful be further assessment. Dictated by: Golden JOHNSON Interpreted: Blayne Patino MD on 12/18/2016 at 9:07 Approved by: Blayne Patino M.D. on 12/18/2016 at 10:35
[2016-12-18] MEDS: 0.9% Sodium Chloride 1,000 ML IV SCH (11:25)
[2016-12-18 13:13] VITALS: BP 148/68; PULSE 68; RESP 18; O2SAT 95
[2016-12-18] MEDS: cefTRIAXone Inj 2,000 MG in Dextrose 5% Minibag Plus 50 ML IV SCH (17:37)
[2016-12-18 18:23] VITALS: BP 150/74; PULSE 70; RESP 18; O2SAT 97
[2016-12-18 22:32] VITALS: BP 153/73; PULSE 72; RESP 20; O2SAT 96
--- NOTE | 2016-12-18 23:08 | PCM.PNMED ---
Subjective Date of Service Dec 18, 2016 Subjective Patient is feeling better and is about to eat a salad for lunch. She has no new complaints and is looking forward to working with physical therapy today to try to get a little bit stronger before discharge. Exam Vital Signs Vital Sign - Last Date Time Temp Pulse Resp B/P Pulse Ox O2 Delivery O2 Flow Rate FiO2 12/18/16 22:32 37.3 72 20 153/73 96 Room Air 12/18/16 00:48 2.00 Intake and Output 12/17/16 12/17/16 12/18/16 Cumulative From/Thru 15:00 23:00 07:00 12/16/16 16:07 - 12/18/16 06:36 Intake Total 720 ml 1299 ml 4488 ml Output Total 1400 ml 3200 ml Balance -680 ml 1299 ml 1288 ml Intake Oral 720 ml 940 ml IV Total 1299 ml 3548 ml Output Urine Total 1400 ml 3200 ml # Bowel Movements 4 5 Exam General: Patient apparently was delirious in the emergency room was much more awake and alert and responsive and totally appropriate during my interview. She is eating macaroni and cheese voraciously. HEENT: Head is atraumatic and normocephalic. He has thinning of her hair. Eyes : Pupils are equally round and reactive to light and accommodation. Extraocular muscles are intact. Sclera are white, anicteric. Subconjunctival mucosa is pink. Ears and nose are unremarkable. Oropharynx: There is no mucosal lesions, there is no thrush, there is no pharyngitis. Neck: Is supple, there are no nodes, or masses or tenderness. Chest: Is clear to auscultation and percussion. There are no rales, rhonchi, wheezes or rubs. Breath sounds are shallow. Heart: Rate, rhythm is regular. There is no murmur, rub or gallop. Abdomen: Good bowel sounds are present. Abdomen is soft, nontender, no organomegaly or masses were appreciated. Extremities: Are symmetrical and well perfused. There is no edema, there is no cellulitis, no rash. Neurologic: Cranial nerves II through XII are intact. There is weakness in the lower extremities. Patient is left-hand dominant and is leaning towards the right. There is no obvious focal neurological deficit however. Psychiatric: Patients mood is calm and shows no sign of agitation. Genital: Deferred Perez catheter is present. Rectal: Defered Lab and Diagnostics Result Diagram: 12/18/16 0610 12/18/1610 Microbiology N urine cultures are pending X-Rays, CTs and MRIs PROCEDURE: X-RAY CHEST ONE VIEW, PORTABLE ([id number]) INDICATIONS: fever TECHNIQUE: One view of the chest was acquired. COMPARISON: [facility], CR, XR CHEST 1VW (PORTABLE), 11/27/2016, 19: 22. FINDINGS: Surgical changes and devices: None. Lungs and pleura: No pleural effusions or pneumothorax. Lungs are clear. Mediastinum: Mediastinal contours appear normal. Heart size is normal. Bones and chest wall: No suspicious bony lesions. Overlying soft tissues appear unremarkable. IMPRESSION: No acute cardiopulmonary findings. Dictated by: Malena Sanders M.D. on 12/16/2016 at 17:13 Approved by: Malena Sanders M.D. on 12/16/2016 at 17:13 Assessment & Plan Patient is a very pleasant 75-year-old white female with history of multiple sclerosis, Parkinson's disease, hypertension, hyperlipidemia, non-insulin- dependent diabetes most, atrial fibrillation and history of severe urinary tract infections presents to [facility] emergency department via EMS services from [facility] today due to onset of fever and shaking chills today. [facility] called EMS services as they found the patient's temperature to be 101 and she was having shaking chills. [facility] called the patient's primary care provider Lucho Regan who instructed the staff at [facility] that the patient needed to go to the emergency room. The medics noticed that the patient had 102.8F temperature on route to the hospital while the other vital signs were stable. # Urinary tract infection with sepsis, present at time of admission. Active and ongoing.. - Patient has lactic acidosis, now resolving - Patient received a total of 3 L per sepsis protocol. - Check serial serum lactic acid levels until normalized. - Check final urine culture results. So far the urine cultures are negative to date which is quite surprising as the urine was packed with white blood cells. - Continue Rocephin 2 g IV every 24 hours and adjust antibiotics according to culture results. - Check renal ultrasound which is pending. # Multiple sclerosis and Parkinson's disease - Patient has frequent urinary tract infections and had a suprapubic catheter placed in the past however this also got infected. - Change Perez catheter today. - We will continue physical therapy, occupational therapy, and speech therapy. - Continue home medications. # Type II diabetes mellitus - Sliding-scale insulin coverage after Accu-Cheks before meals and at bedtime - Check hemoglobin A1c - Diabetic diet. # History of hypertension - Continue home medications # History of hyperlipidemia - Continue home medications Disposition: Patient will be here another 24-48 hours for the evaluation and treatment of the above problems. We are awaiting urine culture results in order to adjust antibiotics accordingly. Will also check renal ultrasound to look for obstruction or hydronephrosis and will need to change Perez catheter prior to discharge. Pain Evaluation: Adequate Pain Control GI Prophylaxis: Not indicated VTE Prophylaxis: Sub-Q Enoxaparin VTE Mechanical Devices: Intermittant Pneumatic CD Resuscitation Status: CPR: Attempt Resuscitation Karl Rankin MD Dec 18, 2016 23:08
[2016-12-19] VITALS (9 sets, daily range): BP systolic 114–152; BP diastolic 62–82; PULSE 60–73; RESP 20; O2SAT 95–97
[2016-12-19] MEDS: HYDROcodone-APAP 5-325 mg Tablet PO PRN ×3 (00:06→21:02)
[2016-12-19] MEDS: 0.9% Sodium Chloride 1,000 ML IV SCH ×2 (00:07→21:12)
[2016-12-19 06:57] LABS: BASOPHILS % (AUTO) 0.5 % (0-3); EOSINOPHILS % (AUTO) 3.5 % (0-5); Mean Corpuscular Hemoglobin 24.6 pg (27.0-35.0); Mean Corpuscular Volume 81.7 fL (81-100); Platelet Count 234 bil/L (150-400)
[2016-12-19 07:41] LABS: Magnesium 2.1 mg/dL (1.6-2.6)
[2016-12-19] MEDS: Pantoprazole 20 mg ER24 Tablet PO SCH (07:52)
[2016-12-19] MEDS: Insulin GLARgine 100 Unit/mL Syringe SUBQ SCH (07:53)
[2016-12-19] MEDS: Nystatin 100,000 Unit/Gm 15 Gm Powder TOPICAL SCH ×2 (07:54→21:05)
[2016-12-19] MEDS: Insulin Human REGular 300 Unit/3 mL Inj SUBQ SCH ×4 (07:54→21:04)
[2016-12-19] MEDS ORDERED: Insulin GLARgine 100 Unit/mL Syringe SUBQ ONE (11:15)
[2016-12-19 17:11] LABS: APPEARANCE,URINE TURBID (CLEAR,HAZY); COLOR,URINE STRAW (YELLOW); OCCULT BLOOD,URINE LARGE (NEGATIVE); UROBILINOGEN,URINE NORMAL (NORMAL)
[2016-12-19 17:12] LABS: YEAST,URINE MODERATE (NONE SEEN)
[2016-12-19] MEDS: cefTRIAXone Inj 2,000 MG in Dextrose 5% Minibag Plus 50 ML IV SCH (17:30)
--- NOTE | 2016-12-19 23:49 | PCM.PNMED ---
Subjective Date of Service Dec 19, 2016 Subjective Patient has no new complaints. She walked further with physical therapy today and is feeling better. Exam Vital Signs Vital Sign - Last Date Time Temp Pulse Resp B/P Pulse Ox O2 Delivery O2 Flow Rate FiO2 12/19/16 21:13 37.2 65 20 114/62 97 Room Air 12/18/16 00:48 2.00 Intake and Output 12/18/16 12/18/16 12/19/16 Cumulative From/Thru 15:00 23:00 07:00 12/16/16 16:07 - 12/19/16 05:55 Intake Total 900 ml 1374 ml 521 ml 7283 ml Output Total 1600 ml 1200 ml 6000 ml Balance -700 ml 174 ml 521 ml 1283 ml Intake Oral 900 ml 900 ml 2740 ml IV Total 474 ml 521 ml 4543 ml Output Urine Total 1600 ml 1200 ml 6000 ml # Bowel Movements 1 1 7 Exam General: Patient apparently was delirious in the emergency room and is now much more awake and alert and responsive and totally appropriate during my interview. She is eating well. HEENT: Head is atraumatic and normocephalic. She has thinning of her hair. Eyes: Pupils are equally round and reactive to light and accommodation. Extraocular muscles are intact. Sclera are white, anicteric. Subconjunctival mucosa is pink. Ears and nose are unremarkable. Oropharynx: There are no mucosal lesions, there is no thrush, there is no pharyngitis. Neck: Is supple, there are no nodes, or masses or tenderness. Chest: Is clear to auscultation and percussion. There are no rales, rhonchi, wheezes or rubs. Breath sounds are shallow. Heart: Rate, rhythm is regular. There is no murmur, rub or gallop. Abdomen: Good bowel sounds are present. Abdomen is soft, nontender, no organomegaly or masses were appreciated. Extremities: Are symmetrical and well perfused. There is no edema, there is no cellulitis, no rash. Neurologic: Cranial nerves II through XII are intact. There is weakness in the lower extremities. Patient is left-hand dominant and is leaning towards the right. There is no obvious focal neurological deficit however. Psychiatric: Patients mood is calm and shows no sign of agitation. Genital: Pelvic and rectal exam are deferred. Perez catheter is present. Rectal: Deferred Lab and Diagnostics Result Diagram: 12/19/16 0637 12/19/16 0637 Microbiology N urine cultures are pending X-Rays, CTs and MRIs PROCEDURE: X-RAY CHEST ONE VIEW, PORTABLE ([id number]) INDICATIONS: fever TECHNIQUE: One view of the chest was acquired. COMPARISON: [facility], CR, XR CHEST 1VW (PORTABLE), 11/27/2016, 19: 22. FINDINGS: Surgical changes and devices: None. Lungs and pleura: No pleural effusions or pneumothorax. Lungs are clear. Mediastinum: Mediastinal contours appear normal. Heart size is normal. Bones and chest wall: No suspicious bony lesions. Overlying soft tissues appear unremarkable. IMPRESSION: No acute cardiopulmonary findings. Dictated by: Malena Sanders M.D. on 12/16/2016 at 17:13 Approved by: Malena Sanders M.D. on 12/16/2016 at 17:13 PROCEDURE: US RENAL SONOGRAM INDICATIONS: Possible Obstruction/Hydronephrosis TECHNIQUE: Real-time scanning was performed of the kidneys and bladder, with image documentation. COMPARISON: None. FINDINGS: Kidneys: Kidneys are normal in size. Right kidney measures 11.3 cm long; left kidney measures 12.0 cm long. Right renal cortical thickness is 1.3 cm; left renal cortical thickness is 1.3 cm. Renal cortical echotexture is normal. Moderate left hydronephrosis is present. Right renal cysts noted largest measuring roughly 32 mm. Bladder: Urinary bladder decompressed by Perez catheter and suboptimally visualized. Miscellaneous: No free pelvic fluid. IMPRESSION: Moderate left hydronephrosis. If clinically indicated, CT IVP may be helpful be further assessment. Dictated by: Golden Beasley [facility] Interpreted: Blayne Patino MD on 12/18/2016 at 9:07 Approved by: Blayne Patino M.D. on 12/18/2016 at 10:35 Assessment & Plan Patient is a very pleasant 75-year-old white female with history of multiple sclerosis, Parkinson's disease, hypertension, hyperlipidemia, non-insulin- dependent diabetes most, atrial fibrillation and history of severe urinary tract infections presents to [facility] emergency department via EMS services from [facility] today due to onset of fever and shaking chills today. [facility] called EMS services as they found the patient's temperature to be 101 and she was having shaking chills. [facility] called the patient's primary care provider Lucho Regan who instructed the staff at [facility] that the patient needed to go to the emergency room. The medics noticed that the patient had 102.8F temperature on route to the hospital while the other vital signs were stable. The patient was admitted to the hospital service for further evaluation and treatment. # Urinary tract infection with sepsis, present at time of admission. Active and ongoing.. - Patient has lactic acidosis, now resolving - Patient received a total of 3 L per sepsis protocol. - We checked serial serum lactic acid levels until normalized. - Check final urine culture results. So far the urine cultures are negative to date which is quite surprising as the urine was packed with white blood cells. A repeat urine was obtained and appeared brown and purulent. - Continue Rocephin 2 g IV every 24 hours and adjust antibiotics according to culture results. - Recommend infectious disease consultation with Dr. Chandler. - We checked renal ultrasound showed "Moderate left hydronephrosis. If clinically indicated, CT IVP may be helpful be further assessment." Consider urology consultation. # Multiple sclerosis and Parkinson's disease - Patient has frequent urinary tract infections and had a suprapubic catheter placed in the past however this also got infected. - We have changed Perez catheter today. - We will continue physical therapy, occupational therapy, and speech therapy. - Continue home medications. # Type II diabetes mellitus - Sliding-scale insulin coverage after Accu-Cheks before meals and at bedtime - Check hemoglobin A1c - Diabetic diet. # History of hypertension - Continue home medications # History of hyperlipidemia - Continue home medications Disposition: Patient will be here another 24-48 hours for the evaluation and treatment of the above problems. We are awaiting urine culture results in order to adjust antibiotics accordingly. Recommend infectious disease consultation with Dr. Chandler for clear treatment plan. Pain Evaluation: Adequate Pain Control GI Prophylaxis: Not indicated VTE Prophylaxis: Sub-Q Enoxaparin VTE Mechanical Devices: Intermittant Pneumatic CD Resuscitation Status: CPR: Attempt Resuscitation Karl Rankin MD Dec 19, 2016 23:48
[2016-12-20 00:27] VITALS: BP 134/77; PULSE 65; RESP 20; O2SAT 97
[2016-12-20 04:56] VITALS: BP 154/77; PULSE 60; RESP 20; O2SAT 94
[2016-12-20 05:01] LABS: BASOPHILS % (AUTO) 0.5 % (0-3); EOSINOPHILS % (AUTO) 4.2 % (0-5); MONOCYTES % (AUTO) 13.6 % (4-12); Mean Corpuscular Hemoglobin 24.4 pg (27.0-35.0); Mean Corpuscular Volume 82.5 fL (81-100); NEUTROPHILS % (AUTO) 47.4 % (40-74); Platelet Count 228 bil/L (150-400)
[2016-12-20] MEDS: Pantoprazole 20 mg ER24 Tablet PO SCH (06:04)
[2016-12-20 06:05] LABS: Magnesium 1.6 mg/dL (1.6-2.6)
[2016-12-20] MEDS ORDERED: Insulin GLARgine 100 Unit/mL Syringe SUBQ SCH (08:00)
[2016-12-20] MEDS: Insulin Human REGular 300 Unit/3 mL Inj SUBQ SCH ×2 (08:59→11:29)
[2016-12-20] MEDS: HYDROcodone-APAP 5-325 mg Tablet PO PRN (09:01)
[2016-12-20] MEDS: Nystatin 100,000 Unit/Gm 15 Gm Powder TOPICAL SCH (09:03)
[2016-12-20 10:00] VITALS: BP 148/78; PULSE 65; RESP 20; O2SAT 94
[2016-12-20 10:15] VITALS: PULSE 64
--- NOTE | 2016-12-20 10:52 | PCM.DIMED ---
Discharge Instructions Date of Service Dec 20, 2016 Dates of Hospitalization Dec 16, 2016 at 18:23 Discharge Diagnosis Discharge Diagnosis # Urinary tract infection with sepsis # Multiple sclerosis and Parkinson's disease # Type II diabetes mellitus # History of hypertension # History of hyperlipidemia atrial fibrillation and history of severe urinary tract infections Chronic Suprapubic Perez Catheter Diet Discharge Diet: No restrictions Activity Discharge Activity: No restrictions Call your provider Call your provider for: Fever or Chills, Shortness of breath, Bleeding, Chest pain, Vomitting, Other (Fever) Patient Instructions Follow-up Provider: Quoc Alejandre MD Follow-up with PCP in: 1 week Quoc Alejandre MD Dec 20, 2016 10:52
[2016-12-20] MEDS ORDERED: LOPE2TAB32 PO (10:57)
[2016-12-20] MEDS ORDERED: TRAM50TA2 PO (10:57)
[2016-12-20] MEDS ORDERED: CEFU500T61 PO (10:57)
[2016-12-20] MEDS ORDERED: HYDR-4003 PO (10:57)
--- NOTE | 2016-12-20 14:12 | PCM.DC.MED ---
Discharge Summary Date of Service Dec 20, 2016 Dates of Hospitalization Date of Hospital Admission Dec 16, 2016 at 18:23 Date of Discharge: Dec 20, 2016 Providers: Admitting Physician: Karl Rankin MD Primary Care Physician: Roberto Alejandre MD Attending Physician: Karl Rankin MD Diagnosis at Time of Discharge Diagnosis at Time of Discharge # Urinary tract infection with sepsis # Multiple sclerosis and Parkinson's disease # Type II diabetes mellitus # History of hypertension # History of hyperlipidemia atrial fibrillation and history of severe urinary tract infections Chronic Suprapubic Perez Catheter Procedures XRay, CTs & MRIs PROCEDURE: X-RAY CHEST ONE VIEW, PORTABLE ([id number]) INDICATIONS: fever TECHNIQUE: One view of the chest was acquired. COMPARISON: [facility], , XR CHEST 1VW (PORTABLE), 11/27/2016, 19: 22. FINDINGS: Surgical changes and devices: None. Lungs and pleura: No pleural effusions or pneumothorax. Lungs are clear. Mediastinum: Mediastinal contours appear normal. Heart size is normal. Bones and chest wall: No suspicious bony lesions. Overlying soft tissues appear unremarkable. IMPRESSION: No acute cardiopulmonary findings. Dictated by: Malena Sanders M.D. on 12/16/2016 at 17:13 Approved by: Malena Sanders M.D. on 12/16/2016 at 17:13 PROCEDURE: US RENAL SONOGRAM INDICATIONS: Possible Obstruction/Hydronephrosis TECHNIQUE: Real-time scanning was performed of the kidneys and bladder, with image documentation. COMPARISON: None. FINDINGS: Kidneys: Kidneys are normal in size. Right kidney measures 11.3 cm long; left kidney measures 12.0 cm long. Right renal cortical thickness is 1.3 cm; left renal cortical thickness is 1.3 cm. Renal cortical echotexture is normal. Moderate left hydronephrosis is present. Right renal cysts noted largest measuring roughly 32 mm. Bladder: Urinary bladder decompressed by Perez catheter and suboptimally visualized. Miscellaneous: No free pelvic fluid. IMPRESSION: Moderate left hydronephrosis. If clinically indicated, CT IVP may be helpful be further assessment. Dictated by: Golden Beasley [facility] Interpreted: Blayne Patino MD on 12/18/2016 at 9:07 Approved by: Blayne Patino M.D. on 12/18/2016 at 10:35 Brief History Patient is a very pleasant 75-year-old white female with history of multiple sclerosis, Parkinson's disease, hypertension, hyperlipidemia, non-insulin- dependent diabetes most, atrial fibrillation and history of severe urinary tract infections presents to [facility] emergency department via EMS services from [facility] due to onset of fever and shaking chills today. [facility] called EMS services as they found the patient's temperature to be 101 and she was having shaking chills. [facility] called the patient's primary care provider Lucho Regan who instructed the staff at [facility] that the patient needed to go to the emergency room. The medics noticed that the patient had 102.8F temperature on route to the hospital while the other vital signs were stable. Hospital Course Patient is a very pleasant 75-year-old white female with history of multiple sclerosis, Parkinson's disease, hypertension, hyperlipidemia, non-insulin- dependent diabetes most, atrial fibrillation and history of severe urinary tract infections presents to [facility] emergency department via EMS services from [facility] due to onset of fever and shaking chills today. [facility] called EMS services as they found the patient's temperature to be 101 and she was having shaking chills. [facility] called the patient's primary care provider Lucho Regan who instructed the staff at [facility] that the patient needed to go to the emergency room. The medics noticed that the patient had 102.8F temperature on route to the hospital while the other vital signs were stable. The patient was admitted to the hospital service for further evaluation and treatment. # Urinary tract infection with sepsis, present at time of admission. Active and ongoing. Undoubtedly related to chronic indwelling catheter. - Patient has lactic acidosis, now resolved. - Patient received a total of 3 L per sepsis protocol. - We checked serial serum lactic acid levels until normalized. - So far the urine cultures are negative to date which is quite surprising as the urine was packed with white blood cells. A repeat urine was obtained and appeared brown and purulent but again the culture was negative. Consider ID referral for clarification, and urology consultation. - Changed to oral antibiotics of cefuroxime. I do not suspect active tuberculosis despite the classic "sterile pyuria" noted. - We checked renal ultrasound showed "Moderate left hydronephrosis. If clinically indicated, CT IVP may be helpful be further assessment." Consider urology consultation. # Multiple sclerosis and Parkinson's disease with neurogenic bladder - Patient has frequent urinary tract infections and had a suprapubic catheter placed in the past however this also got infected. - We have changed the Perez catheter here and will continue monthly changes per protocol. - We will continue physical therapy, occupational therapy, and speech therapy back at [facility]. - Continue home medications. # Type II diabetes mellitus - Sliding-scale insulin coverage after Accu-Cheks before meals and at bedtime - The A1c was very high at 11.3, and so the insulin has been increased to the dose she states she used to be on of 100 units of Lantus daily. Her blood sugar this morning is in the 100-200 range so she seems to tolerate the higher dose. - Diabetic diet. # History of hypertension - Continue home medications -Also required magnesium supplementation due to sepsis related to hypomagnesemia. # History of hyperlipidemia - Continue home medications Exam Vital Signs (Last) Date Time Temp Pulse Resp B/P Pulse Ox O2 Delivery O2 Flow Rate FiO2 12/20/16 10:15 64 12/20/16 10:00 36.9 20 148/78 94 Room Air 12/18/16 00:48 2.00 Test 12/16/16 16:49 12/17/16 06:20 12/19/16 16:57 12/20/16 04:25 Urinalysis Comment None Hemoglobin A1c 11.3% (4.8-5.6) Lactic Acid Level 1.8mmol/L (0.4-2.0) Troponin T < 0.010ug/L (0.0-0.011) Pro-B-Type Natriuretic Peptide 522.1pg/mL (0-738) Erythrocyte Sedimentation Rate 86mm/hr (0-40) Reticulocyte Count,Calculated 2.0% (0.6-2.6) Phosphorus Level 4.3mg/dL (2.5-4.9) Iron Level 19ug/dL (35-150) Total Iron Binding Capacity 229ug/dL (250-450) Percent Iron Saturation 8%sat (15-50) Unsaturated Iron Binding 209.6ug/dL Ferritin 50ng/mL (13-150) C-Reactive Protein 11.9mg/dL (0.0-0.5) Vitamin B12 Level 607pg/mL (211-946) Folate 10.9ng/mL (>3.0) Thyroid Stimulating Hormone (TSH) 1.010uIU/mL (0.450-4.500) Urine Color Straw (YELLOW) Urine Appearance Turbid (CLEAR,HAZY) Urine pH 6.0 (5.0-8.0) Urine Specific Champion 1.025 (1.003-1.035) Urine Protein 100mg/dL (NEG,TRACE) Urine Glucose (UA) 500mg/dL (NEGATIVE) Urine Ketones Negativemg/dL (NEGATIVE) Urine Occult Blood Large (NEGATIVE) Urine Nitrite Negative (NEGATIVE) Urine Bilirubin Negative (NEGATIVE) Urine Urobilinogen Normalmg/dL (NORMAL) Urine Leukocyte Esterase Moderate (NEGATIVE) Urine RBC 11-50/hpf (0-2) Urine WBC Packed/hpf (0-5) Urine Epithelial Cells Few/hpf (NONE-MOD) Urine Crystals None seen (NONE SEEN) Urine Bacteria Moderate/hpf (NONE-FEW) Urine Hyaline Casts None/lpf (NONE) Urine Granular Casts None seen (NONE SEEN) Urine Waxy Casts None seen (NONE SEEN) Urine Red Blood Cell Casts None seen (NONE SEEN) Urine White Blood Cell Casts None seen (NONE SEEN) Urine Mucus None seen (None Seen) Urine Trichomonas None seen (NONE SEEN) Urine Yeast Moderate (NONE SEEN) Urine Culture Reflexed Indicated White Blood Count 7.8th/mm3 (3.8-10.1) Red Blood Count 3.65mil/mm3 (3.90-5.20) Hemoglobin 8.9g/dL (12.0-15.6) Hematocrit 30.1% (35.0-46.0) Mean Corpuscular Volume 82.5fL (81-100) Mean Corpuscular Hemoglobin 24.4pg (27.0-35.0) Mean Corpuscular Hemoglobin Concent 29.6% (32.0-37.0) Red Cell Distribution Width 16.6% (12.3-15.4) Platelet Count 228bil/L (150-400) Neutrophils (%) (Auto) 47.4% (40-74) Lymphocytes (%) (Auto) 33.4% (14-46) Monocytes (%) (Auto) 13.6% (4-12) Eosinophils (%) (Auto) 4.2% (0-5) Basophils (%) (Auto) 0.5% (0-3) Sodium Level 138mEq/L (134-144) Potassium Level 5.1mEq/L (3.5-5.2) Chloride Level 104mEq/L (97-108) Carbon Dioxide Level 20mmol/L (18-29) Blood Urea Nitrogen 21mg/dL (8-27) Creatinine 1.02mg/dL (0.57-1.00) Estimat Glomerular Filtration Rate 76mL/min (>59) Glucose Level 223mg/dL (60-99) Calcium Level 9.2mg/dL (8.5-10.1) Magnesium Level 1.6mg/dL (1.6-2.6) Total Bilirubin 0.2mg/dL (0.0-1.2) Aspartate Amino Transf (AST/SGOT) 11U/L (0-50) Alanine Aminotransferase (ALT/SGPT) 5U/L (0-32) Alkaline Phosphatase 87U/L (25-165) Total Protein 7.0g/dL (6.4-8.4) Albumin 2.7g/dL (3.4-5.0) Prealbumin 13mg/dL (20-40) Procalcitonin 0.16ng/mL (0.00-0.08) Microbiology Results N urine cultures are pending Discharge Medications Discharge Medications Acetaminophen (Acetaminophen) 325 Mg Tablet 650 MG PO TID (Reported) Aspirin Chew (Aspirin Chew) 81 Mg Chew 81 MG PO QAM (Reported) Biotin (Biotin) 5,000 Mcg Tab.rapdis 5,000 MCG PO BID (Reported) Carbidopa/Levodopa 25-100 mg (Carbidopa/Levodopa 25-100 mg) 1 Each Tablet 2 TABLET PO TIDWM (Reported) Cefuroxime Axetil (Cefuroxime) 500 Mg Tablet 500 MG PO BID Prescribed by: ALEX ALEJANDRE MD Chlorhexidine Gluconate (Hand Wash) 2 % Liquid 10 ML TP WEEKLY (Reported) DURING SHOWER WEEKLY Cholecalciferol (Vitamin D3) (Vitamin D3) 1,000 Unit Tab.chew 2,000 UNIT PO QAM (Reported) Cyanocobalamin (Vitamin B12) 500 Mcg Tablet 1,000 MCG PO QAM (Reported) Gabapentin (Gabapentin) 400 Mg Capsule 400 MG PO QID (Reported) Insulin Detemir (Levemir U100 Insulin Vial) 100 Unit/1 Ml Vial 100 UNIT SUBQ DAILYWM (Reported) Lactobacillus Acidophilus (Probiotic Acidophilus) 2 Billion Cell Tablet 1 EACH PO BIDWM (Reported) Linagliptin (Tradjenta) 5 Mg Tablet 5 MG PO QAM (Reported) Linagliptin (Tradjenta) 5 Mg Tablet 5 MG PO DAILY (Reported) Lisinopril (Lisinopril) 2.5 Mg Tablet 2.5 MG PO QAM (Reported) Metoprolol Tartrate (Metoprolol Tartrate) 50 Mg Tablet 50 MG PO BID (Reported) Multivit with Calcium,Iron,Min (Therapeutic M) 1 Each Tablet 1 EACH PO QAM ( Reported) Nystatin (Nystatin) 15 Gm Powder 1 APPLIC TP BID (Reported) TO GROIN Omeprazole (Omeprazole) 20 Mg Capsule.dr 20 MG PO QAM (Reported) Simvastatin (Simvastatin) 10 Mg Tablet 10 MG PO HS (Reported) Sulfamethoxazole/Trimeth 800-160 mg (Bactrim DS) 1 Each Tablet 1 TABLET PO BID ( Reported) As needed Bisacodyl (Dulcolax Rectal) 10 Mg Supp.rect 10 MG RC DAILY PRN PRN For Constipation (Reported) PER BOWEL PROTOCOL STEP 2: IF NO RESULTS POST MOM ADMINISTRATION Hydrocodone-Acetaminophen 5-325 mg (Hydrocodone-Acetaminophen 5-325 mg) 1 Each Tablet 1 TABLET PO Q6H PRN PRN For Pain Prescribed by: ALEX ALEJANDRE MD Loperamide (Loperamide) 2 Mg Tablet 2 MG PO Q4H PRN PRN For Diarrhea or Loose Stool Prescribed by: ALEX ALEJANDRE MD Magnesium Hydroxide (Milk of Magnesia) 400 Mg/5 Ml Oral.susp 30 ML PO DAILY PRN PRN For Constipation (Reported) PER BOWEL PROTOCOL STEP 1: IF NO BOWEL MOVEMENTS IN 3 DAYS Methyl Salicylate/Menth/Camph (Bengay Ultra Strength Crm) 57 Gm Cream..g. 1 APPLIC TP BID PRN PRN For Pain (Reported) TO FEET FOR ARTHRITIC PAIN Na Phos,M-B/Na Phos,Di-Ba (Fleet Enema) 133 Ml Enema 133 ML RC DAILY PRN PRN For Constipation (Reported) PER BOWEL PROTOCOL STEP 3: IF NO RESULTS POST BISACODYL ADMINISTRATION Tramadol (Tramadol) 50 Mg Tablet 50-100 MG PO Q6H PRN PRN For Pain 1 TABLET FOR MIL PAIN, 2 TABLETS FOR MODERATE PAIN Prescribed by: ALEX ALEJANDRE MD Zinc Oxide (Zinc Oxide) 57 Gm Oint...g. 1 APPLIC TP Q8H PRN PRN RASH (Reported) Followup Plan Discharge Diet: No restrictions Discharge Activity: No restrictions Follow-up Provider: Quoc Alejandre MD Follow-up with PCP in: 1 week Time spent 45 minutes Quoc Alejandre MD Dec 20, 2016 10:58
[2016-12-23] MEDS ORDERED: Chlorhexidine 4% 120 mL Topical Solution TOPICAL SCH (08:30)
== END 2016-12-20 13:30 | DRG 698 ==
LOC: SED 15:55 → EDUNIT# 15:55 → EDBD 15:55 → MPC 18:23
PROVIDERS: ADMIT Internal Medicine Infectious Disease; ATTEND Internal Medicine Infectious Disease
DX: T83.518A Infection and inflammatory reaction due to other urinary catheter, initial encounter (principal); A41.9 Sepsis, unspecified organism; N39.0 Urinary tract infection, site not specified; E87.2 Acidosis; R41.0 Disorientation, unspecified; E86.0 Dehydration; G35 Multiple sclerosis; G20 Parkinson's disease; E78.5 Hyperlipidemia, unspecified; I10 Essential (primary) hypertension; Z79.4 Long term (current) use of insulin; I48.91 Unspecified atrial fibrillation; E11.65 Type 2 diabetes mellitus with hyperglycemia; Z87.891 Personal history of nicotine dependence